=== PATIENT | male | born 1980 | race African-American/Black ===

== ENCOUNTER 2020-02-04 12:37 | Inpatient (IN) | payer OTHER ==
[~2020-02-04] VITALS: Ht 157.5 cm; Wt 235.9 kg
--- NOTE | ~2020-02-04 | EMS ---
[place] [address] EMS Patient Care Report Name: YOLIE WHALEN Room #: 357-P ADM IN M.R.#: [id number] Admission: 02/04/20 Attend Phys: Pérez Jhaveri MD Discharge: Date of : 76 Report #: [id number] THIS REPORT FOR: //name// Report Transmitted: 02/05/2020 03:35 EMS Care Summary [place], [place]/[facility] Incident [id number] @ 02/04/2020 12:00 Incident [address] [place] [address] Patient YOLIE WHALEN Male, 39 Years 1980 Patient Address [address] [place] [address] Patient History Chronic Obstructive Pulmonary Disease (COPD),Diabetes,Hypertension (HTN), Patient Allergies Furosemide, Patient Medications Bumex, Albuterol, Allantoin, Chief Complaint SOA Disposition Transported No Lights/[place] Dispatch Reason Breathing Problem Transported To [facility] Narrative PT STATES THAT PT FEELS SOA. PT DENIES CHEST PAIN, FEVER, OR NAUSEA. PT STATES THAT PT HAS BEEN FEELING LIKE THIS FOR A COUPLE DAYS AND RECENTLY WENT TO THE ER. PT STATES THAT PT FEELS SOA UPON EXHERTION. PT STATES THAT PT HAS BEEN COUGHING UP GREEN PHLEM. PT STATES THAT PT FEELS REALY SOA [place] [address] EMS Patient Care Report Name: YOLIE WHALEN Room #: 357-P ADM IN M.R.#: [id number] Admission: 02/04/20 Attend Phys: Pérez Jhaveri MD Discharge: Date of : 76 Report #: [id number] PT HAS NO OTHER CMPLAINTS. PT WAS FOUND SITTING UPRIGHT ON THE EDGE OF PT'S BED. PT SPOKE IN FULL AND COMPLETE SENTENCES. PT IS ABLE TO STAND AND PIVOT WITH ASSITANCE IN ORDER TO GET TO EMS COT. PT HAS NO OTHER OBVIOUS ABNORMALITIES. Initial Vitals @12:17P: 89,R: 24,Pain: 0/10,GCS: 15,CO: 4,SpO2: 96, @12:08P: 97,R: 24,BP: 111/80,GCS: 15,CO: 4,SpO2: 93,Revised Trauma: 12, Assessments @12:08MENTAL:Person Oriented,Time Oriented,Place Oriented,Event Oriented,SKIN:HEENT:Eyes: Left Pupil: 4-mm,Eyes: Right Pupil: 4-mm,Head/Face: No Abnormalities,Neck/Airway: No Abnormalities,LUNG SOUNDS:General: No Abnormalities,ABDOMEN:General: No Abnormalities,PELVIS//GI:EXTREMITIES:Capillary Refill: Right Upper: < 2 Sec,Left Arm: No Abnormalities,Right Arm: No Abnormalities,Left Leg: No Abnormalities,Right Leg: No Abnormalities,PULSE:Radial: 2+ Normal,NEURO: Impression Acute Respiratory Distress (Dyspnea) Procedures @12:08ALS AssessmentResponse: UnchangedSucceeded@12:17Oxygen FlowRate: 4 Device: Nasal Cannula (NC) Response: UnchangedSucceeded Timeline 11:59,Call Received 11:59,Dispatch Notified 12:00,Dispatched 12:01,En Route 12:05,On Scene 12:07,At Patient 12:08,ALS Assessment,Response: UnchangedSucceeded, 12:08,BP: 111/80 M,PULSE: 97,RR: 24 R,SPO2: 93 Ox,ETCO2: ,BG: ,PAIN: ,GCS: 15, 12:17,Oxygen FlowRate: 4 Device: Nasal Cannula (NC) Response: UnchangedSucceeded, 12:17,BP: / M,PULSE: 89,RR: 24 R,SPO2: 96 Ox,ETCO2: ,BG: ,PAIN: 0,GCS: 15, 12:20,Depart Scene 12:47,At Destination 12:51,Call Closed Disclaimer v1.1 Copyright 2020 [employer] This EMS Care Summary contains data elements from the applicable legal record (which may be displayed differently). It is designed to provide pertinent [address] [address] EMS Patient Care Report Name: YOLIE WHALEN Room #: 357-P ADM IN M.R.#: [id number] Admission: 02/04/20 Attend Phys: Pérez Jhaveri MD Discharge: Date of : 76 Report #: [id number] information for the following purposes: continuity of care, clinical quality, and state data reporting. The complete legal record is available to ED staff and administrators of the receiving hospital in [facility]'s Patient Tracker. All data is provided "as is."
[2020-02-04 12:38] VITALS: BP 112/44
[2020-02-04 13:08] LABS: ABSOLUTE NEUTROPHILS 4.1 thou/uL (1.4-8.2); EOSINOPHILS 3.3 % (0.0-3.0); HEMATOCRIT 40.4 % (42.0-52.0); HEMOGLOBIN 12.7 gm/dL (14.0-18.0); LYMPHOCYTES 24.1 % (24.0-44.0); MCH 29.3 pg (26.0-34.0); MCHC 31.5 g/dL (28.0-37.0); MONOCYTES 10.8 % (1.0-8.0); PLATELET COUNT 216 thou/uL (150-400); POLYS 60.8 % (36.0-66.0); RBC 4.35 mil/uL (4.50-6.00); RDW 13.3 % (10.5-14.5); WBC 6.8 thou/uL (4.0-11.0)
[2020-02-04 13:22] LABS: ANION GAP 0 mmol/L (7-16); BUN 11 mg/dL (7-18); CALCIUM 8.9 mg/dL (8.5-10.1); CHLORIDE 97 mmol/L (98-107); CO2 42 mmol/L (21-32); CREATININE 0.8 mg/dL (0.7-1.3); GLUCOSE 109 mg/dL (74-106); POTASSIUM 3.6 mmol/L (3.5-5.1); SODIUM 139 mmol/L (136-145)
[2020-02-04 13:27] LABS: BE(vivo) 10.7 mmol/L (-2 to +3); PO2 96.9 mmHg (80.0-100.0); sO2 96.5 % (92.0-98.0)
[2020-02-04 13:28] LABS: PCO2 79.7 mmHg (35.0-45.0); pH 7.318 (7.360-7.450)
[2020-02-04 13:28] LABS: APTT 27.6 Seconds (24.5-32.8); INR 1.1
[2020-02-04 13:31] LABS: MAGNESIUM 1.9 mg/dL (1.8-2.4); SGOT 25 U/L (15-37); SGPT 14 U/L (30-65); TOTAL BILIRUBIN 0.6 mg/dL (0.2-1.0); TOTAL PROTEIN 8.5 g/dL (6.4-8.2); TROPONIN-I <0.06 ng/mL (<0.06)
[2020-02-04 13:43] LABS: D-DIMER 1.01 ug/mLFEU (0.19-0.50)
[2020-02-04] MEDS ORDERED: ATENOLOL 25 MG25 M1 PO (14:51)
[2020-02-04] MEDS ORDERED: BUMEX2 MG PO (14:51)
[2020-02-04] MEDS ORDERED: PROAIR HFA8.5 GM INH (14:52)
--- NOTE | 2020-02-04 14:53 | NUR ---
UPON ENTERING RM PT O2 SAT 70%. RT JUST COMPLETED BREATHING TX AND O2 STILL CONNECTED TO BREATHING TX AND NOT NASAL CANNULA ON PT. O2 ON AT 5L AND O2 NOW 97%. PT IN NAD.
--- NOTE | 2020-02-04 16:49 | EKG ---
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
[2020-02-04 18:01] VITALS: BP 110/82
[2020-02-04 18:13] VITALS: BP 110/82
[2020-02-04 19:00] VITALS: BP 123/87
[2020-02-04 20:20] VITALS: BP 152/73
[2020-02-05 03:39] VITALS: BP 132/78
[2020-02-05 06:02] LABS: ABSOLUTE NEUTROPHILS 8.1 thou/uL (1.4-8.2); BASOPHILS 0.3 % (0.0-2.0); LYMPHOCYTES 7.2 % (24.0-44.0); MCH 29.2 pg (26.0-34.0); MCV 94.2 fL (80.0-100.0); MONOCYTES 3.1 % (1.0-8.0); PLATELET COUNT 211 thou/uL (150-400); POLYS 89.4 % (36.0-66.0); RBC 4.45 mil/uL (4.50-6.00); RDW 13.6 % (10.5-14.5); WBC 9.1 thou/uL (4.0-11.0)
[2020-02-05 06:28] LABS: ANION GAP < 0 mmol/L (7-16); BUN 10 mg/dL (7-18); CALCIUM 8.9 mg/dL (8.5-10.1); CHLORIDE 97 mmol/L (98-107); CO2 43 mmol/L (21-32); CREATININE 0.7 mg/dL (0.7-1.3); GLUCOSE 154 mg/dL (74-106); MAGNESIUM 2.3 mg/dL (1.8-2.4); SODIUM 138 mmol/L (136-145)
[2020-02-05 06:46] LABS: POTASSIUM 4.6 mmol/L (3.5-5.1)
--- NOTE | 2020-02-05 07:02 | NUR ---
PT ARRIVED FROM ER AND PLACED IN ROOM 357 AT APPROXIMATELY 1850. ADMISSION ASSESSMENTS COMPLETED. PT DENIES ANY PAIN. HE REPORTS THAT HE NORMALLY WEARS O2 AT 3L PER NC THROUGHOUT THE DAY BUT TURNS IT UP TO 4-5L AT BED TIME. STATES HE BELIEVES HE HAS SLEEP APNEA BUT HAS NEVER BEEN THROUGH ANY TESTING OR BEEN GIVEN A CPAP MACHINE. O2 WAS TURNED UP PER REQUEST WHEN PT WENT TO SLEEP. AWAIT COVID-19 RESULTS.
[2020-02-05 08:38] VITALS: BP 142/76
[2020-02-05 11:10] VITALS: BP 127/73
--- NOTE | 2020-02-05 11:43 | NUR ---
ASSUMED CARE APPROX 0700. PT ALERT AND ORIENTED X4. ON 5L AT START OF SHIFT. PER DR. NIELSEN: WEAN PT OFF MAINTAIN 02 SAT >90%. PT IS NOW ON 3LNC WHICH IS HIS BASELINE. SATS ARE 96-97%. SPOKE TO DR. PEREZ REGARDING EVAL FOR CPAP FOR SUSPECTED JUAN. WOULD LIKE PT STARTED ON BIPAP. DR. NIELSEN NOTIFIED. COVID RESULTS NEGATIVE. ORDERS FOR RESWAB GIVEN. WILL SEND TO LAB.
[2020-02-05 15:21] VITALS: BP 136/68
[2020-02-05 20:23] VITALS: BP 141/68
--- NOTE | 2020-02-05 23:01 | NUR ---
PT IS ALERT AND ORIENTED X4 VSS AFEBRILE. BIPAP CAN NOT BE USED UNTIL COVID IS RULED OUT. CONTINUE ON O2 PER NC AND BREATHING TREATMENTS. BREATH SOUNDS ARE DIMINISHED WITH WHEEZES. UNLABORED ON O2 3.5 LNC PRESENTLY. NO S/S DISTRESS. NO C/O PAIN. WILL CONTINUE TO MONITOR PT FOR CHANGES.
[2020-02-06] VITALS: BP 123/68
[2020-02-06 03:47] VITALS: BP 142/62
--- NOTE | 2020-02-06 04:58 | NUR ---
PT PROGRESSING SLOWLY TOWARDS D/C GOALS. VSS AFEBRIL SAT 97% WITH O2 6LNC. PT UNABLE TO WEAR BIPAP TONIGHT DUE TO COVID STILL PENDING. LUNGS STILL HAVE WHEEZES. RT TX GIVEN. PT IRRITABLE THIS AM. HE WAS UPSET SHOP SERVICE TECHNICIAN TOLD HIM HE WAS NO LONGER IN ISOLAION. SHOP SERVICE TECHNICIAN STATED CHARGE NS TOLD HER THAT HE WAS NO LONGER IN ISOLATION. EXPLAINED TO PT COVID TEST WAS STILL PENDING. CHARGE NS WENT BACK TO TALK WITH PT AND CLARIFY SITUATION.
--- NOTE | 2020-02-06 05:02 | HC ---
[facility] [place] [address] CONSULTATION Name: YOLIE WHALEN Room #: 357-P [facility] IN M.R.#: [id number] Admission: 02/04/20 Attend Phys: Pérez Jhaveri MD Discharge: Date of : 76 Report #: [id number] THIS REPORT FOR: cc: [facility] - Family physician unknown JAYRO - Family physician unknown Kishor Sanchez MD ~ CC: Pérez Jhaveri [facility] unknown DATE OF SERVICE: 02/05/2020 INFECTIOUS DISEASE CONSULTATION ATTENDING PHYSICIAN: Dr. Jhaveri. REASON FOR EVALUATION: Febrile illness with pneumonitis. Progressive dyspnea with hypoxemia. HISTORY OF PRESENT ILLNESS: Chart reviewed, patient examined. This is a 39-year-old gentleman with chronic obstructive pulmonary disease. He apparently has severe sleep apnea as well. He is on supplemental oxygen on a continuous basis at 2 liters per nasal cannula. He has been ill for 72 hours prior to his admission, developed with progressive dyspnea. He has a cough productive of clear sputum with some fevers. He has noted increasing oxygen requirements as well. Evaluation showed a chest x-ray with bilateral infiltrates. Initial COVID was negative, second test is pending. He was started empirically on ceftriaxone and azithromycin. He is lucid at this point, although he is maintained on 6 liters supplemental oxygen. He has diminished appetite. ALLERGIES: LISTED TO FUROSEMIDE. CURRENT MEDICATIONS: Include methylprednisolone, atenolol, enoxaparin, famotidine, ipratropium and albuterol inhaler, fentanyl, acetaminophen, and did receive azithromycin and ceftriaxone as well. PAST MEDICAL HISTORY: Includes, as described above, morbid obesity, history of obstructive sleep apnea, COPD, hypertension, has a history of cardiomyopathy and congestive heart failure. SOCIAL HISTORY: Nonsmoker, no ethanol. Distant history of illicit drug use, specifically marijuana. FAMILY HISTORY: Noncontributory. REVIEW OF SYSTEMS: Otherwise, unremarkable 10-point review of systems. [facility] [address] [place] [address] CONSULTATION Name: YOLIE WHALEN Room #: 357-P [facility] IN ..#: [id number] Admission: 02/04/20 Attend Phys: Pérez Jhaveri MD Discharge: Date of : 76 Report #: [id number] PHYSICAL EXAMINATION: GENERAL: As described above, morbidly obese. He is pleasant and cooperative. He is in moderate distress. He is generally lucid. VITAL SIGNS: Temperature 97.9, pulse 63, respirations 18, blood pressure 142/76. SKIN: Warm, dry, no rashes. HEENT: Normocephalic. Extraocular muscles are intact. He has got nasal cannula per 6 liters. NECK: Supple, also very thick. LUNGS: Diminished breath sounds overall, scattered coarse breath sounds, some wheezes. HEART: Regular, distant. I do not appreciate a murmur. ABDOMEN: Distended, nontender. RECTAL: Deferred. LABORATORY DATA: Initial chest x-ray showed bilateral mid and lower lobe interstitial opacities, question of some pulmonary edema versus pneumonitis. CBC: White count 6.8, H and H 12.7 and 40.4, platelets of 216. Did have a 0.3% eosinophils. ABGs: pH 7.318, pCO2 of 79.7, pO2 of 96.9; that was on 5-1/2 liters. BNP was 102. Electrolytes: Sodium 139, potassium 3.6, chloride 97, bicarbonate is 4.2, anion gap of 0. BUN and creatinine 11 and 0.8, glucose of 109. LFTs unremarkable. Total protein of 85, albumin of 3.0. PT of 11.0, INR of 1.1. Lactic acid 1.2. COVID test: Initial negative. ASSESSMENT AND PLAN: Pneumonitis. The patient has an underlying significant lung disease, on supplemental oxygen on a continuous basis. Agree with empiric antimicrobial therapy. We will extend those pending results of studies including the followup COVID test. In the event of that being positive, we would initiate remdesivir as well as convalescent plasma. He certainly remains quite tenuous. Monitor expectantly. <ELECTRONICALLY SIGNED> By: Kishor Sanchez MD 02/06/20 0502 0933 1223 Kishor Sanchez MD /nt
[2020-02-06 07:00] VITALS: BP 144/69
--- NOTE | 2020-02-06 15:52 | NUR ---
ASSUMED PATIENT CARE AT 0700. A/O X4. DENIES CHEST PAIN. TURNED 02 TO 3L AT 0700. TOLERATED ON 3L. 2ND COVID PCR NEHATIVE. TRANSFERED PATIENT TO [facility] AT 1540.
[2020-02-06 16:50] VITALS: BP 108/61
[2020-02-06 19:49] VITALS: BP 114/61
[2020-02-07] VITALS (7 sets, daily range): BP systolic 106–149; BP diastolic 41–80
--- NOTE | 2020-02-07 04:15 | NUR ---
CARE ASSUMED 1900, PT ALERT AND ORIENTED. VSS. NO C/O CHEST DISCOMFORT, OR NAUSEA. SR ON THE MONITOR. MINIMAL SOB WITH ACTIVITIES. PT REQUESTED TO HAVE HIS DOSE OF BUMEX LAST NIGHT. PT HAD BEEN ORDERED TORSEMIDE BUT HE IS ALLERIGIC TO IT. HOME HEALTH ASSISTANT AND PHARMACY NOTIFIED FOR ORDER CLARIFICATION. PT GIVEN BUMEX 2MG X1 LAST NIGHT. PT SCHEDULED DOSE TO BE CLARIFIED BY DR. NIELSEN. NO OTHER EVENTS. WILL CONTINUE TO MONITOR AND FOLLOW POC.
[2020-02-07 06:05] LABS: ANION GAP < 0 mmol/L (7-16); BUN 15 mg/dL (7-18); CALCIUM 8.9 mg/dL (8.5-10.1); CHLORIDE 96 mmol/L (98-107); CO2 44 mmol/L (21-32); CREATININE 0.7 mg/dL (0.7-1.3); GLUCOSE 91 mg/dL (74-106); POTASSIUM 3.9 mmol/L (3.5-5.1); SODIUM 139 mmol/L (136-145)
[2020-02-07] MEDS ORDERED: CEFDINIR300 MG PO (10:45)
[2020-02-07] MEDS ORDERED: PREDNISONE 20 M20 M1 PO (10:45)
[2020-02-07] MEDS ORDERED: AZITHROMYCIN250 MG PO (10:45)
[2020-02-07] MEDS ORDERED: BUMEX2 MG PO (10:45)
--- NOTE | 2020-02-07 12:17 | 2DMMODE ---
[facility] [place] [employer] [address] 2 D/M-MODE ECHOCARDIOGRAM Name: YOLIE WHALEN Room #: 212-P ADM IN M.R.#: [id number] Admission: 02/04/20 Attend Phys: Pérez Jhaveri MD Discharge: Date of : 78 Report #: [id number] THIS REPORT FOR: cc: FAM - Family physician unknown FAM - Family physician unknown Willard Foley MD ~ APPROVED REPORT Study performed: 02/07/2020 10:40:36 EXAM: Comprehensive 2D, Doppler, and color-flow Echocardiogram Patient Location: Bedside Room #: 212 BSA: 2.87 HR: 69 bpm BP: 106/41 mmHg Rhythm: NSR Other Information Study Quality: Technically DifficultTechnically Limited Indications COPD Hypertension/HDD Morbid obesity Echo Enhancing Agent Indication: Endocardial border delineation Agent(s) / Amount(s) Used: Optison 3 cc Aortic Valve AoV Peak Dean.: 1.29 m/s AO Peak Gr.: 6.68 mmHg LVOT Max P.32 mmHg LVOT Max V: 0.91 m/s Left Ventricle The left ventricle is normal size. There is normal left ventricular wall thickness. The left ventricular systolic function is normal. The left ventricular ejection fraction is within the normal range. LVEF is 55-60%. The left ventricular diastolic function is normal. Right Ventricle [facility] [employer] [place] [address] 2 D/M-MODE ECHOCARDIOGRAM Name: YOLIE WHALEN Room #: 212-P ADM IN M.R.#: [id number] Admission: 02/04/20 Attend Phys: Juarez Wiley Discharge: Date of : 78 Report #: [id number] The right ventricle is normal size. The right ventricular systolic function is normal. Atria The left atrium size is normal. The right atrium size is normal. Aortic Valve The aortic valve is normal in structure. No aortic regurgitation is present. There is no aortic valvular stenosis. Mitral Valve The mitral valve is normal in structure. There is no mitral valve regurgitation noted. No evidence of mitral valve stenosis. Tricuspid Valve The tricuspid valve is normal in structure. There is no tricuspid valve regurgitation noted. Pulmonic Valve Pulmonic valve is not well visualized. There is no pulmonic valvular regurgitation. Great Vessels The aortic root is normal in size. IVC is not well visualized. Pericardium There is no pericardial effusion. <Conclusion> The left ventricle is normal size. LVEF is 55-60%. Techically extremely limited with very little useful information obtained to finely delineate valvular structure/function The left atrium size is normal. There is no pericardial effusion. <ELECTRONICALLY SIGNED> By: Willard Foley MD 02/07/20 1217 1217 1217 Willard Foley MD /INF
[2020-02-07] MEDS ORDERED: ASPIRIN EC325 M1 PO (13:01)
--- NOTE | 2020-02-07 14:00 | NUR ---
MET WITH PATIENT WHO ADMITS WITH CHF/RESP DISTRESS. PATIENT RESIDES AT HOME WITH FAMILY. HE HAS HOME OXYGEN VIA MED RESOURCES HIS CONCENTRATOR ONLY GOES TO 5 LITERS. 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 IF HOME HEALTH ORDERED HE WILL NOT REC THERAPY ONLY HH RN DUE TO INSURANCE. HE HAS NO PREFERENCE FOR HH WILL ACCEPT WHOEVER ACCEPTS HIS [place] MEDICAID
--- NOTE | 2020-02-07 17:28 | NUR ---
ASSESSMENT CHAERTED. PT ALERT AND ORIENTED. SOB NOTED WITH ACTIVITY. 3L AT REST NEEDED 8L WITH ACTIVITY PER THE RT. DISCHARGE PLANS ON HOLD. PT TO BE REEVALUATED FOR OXYGEN NEED. WILL CONTINUE TO MONITOR.
[2020-02-08 03:13] VITALS: BP 121/66
--- NOTE | 2020-02-08 05:06 | NUR ---
PT ALERT AND ORIENTED./. VITALS STABLE. SR ON THE MONITOR. DENIES PAIN, NAUSEA, OR VOMITING. BIPAP HS OTHERWISE 3L NC. SOB WITH ACTIVITIES. DENIES GENERAL PAIN. WILL CONTINUE TO FOLLOW POC.
[2020-02-08 06:11] LABS: BUN 14 mg/dL (7-18); CHLORIDE 91 mmol/L (98-107); CREATININE 0.7 mg/dL (0.7-1.3); GLUCOSE 80 mg/dL (74-106); POTASSIUM 3.2 mmol/L (3.5-5.1); SODIUM 138 mmol/L (136-145)
[2020-02-08 06:18] LABS: CO2 > 45 mmol/L (21-32)
[2020-02-08 07:55] VITALS: BP 134/80
--- NOTE | 2020-02-08 09:50 | NUR ---
PT PLACED BACK ON CPAP PER PT REQUEST AFTER BREAKFAST.
[2020-02-08 11:40] VITALS: BP 124/69
[2020-02-08 16:10] VITALS: BP 114/68
--- NOTE | 2020-02-08 17:05 | NUR ---
IV TEAM REINSERT PICC LINE AND GIVE OK FOR PT TO GO HOME AFTER REPEAT XRY. PT UNDERSTANDS ALL FOLLOW UP ORDERS AND HOME HEALTH SET UP BY CM. DISCHARGE TO HOME VIA PRIVATE VEHICLE.
[2020-02-08 20:17] VITALS: BP 125/78
[2020-02-09 04:00] VITALS: BP 97/60
[2020-02-09 06:06] LABS: CALCIUM 8.7 mg/dL (8.5-10.1); CREATININE 0.8 mg/dL (0.7-1.3); POTASSIUM 3.1 mmol/L (3.5-5.1)
[2020-02-09 07:51] VITALS: BP 121/52
[2020-02-09] MEDS ORDERED: K-DUR 20 MEQ T20 MEQ PO (09:28)
[2020-02-09] MEDS ORDERED: BUMEX2 MG PO (09:28)
[2020-02-09] MEDS ORDERED: CEFDINIR300 MG PO (09:28)
[2020-02-09] MEDS ORDERED: PREDNISONE 20 M20 M1 PO (09:28)
--- NOTE | 2020-02-09 10:20 | NUR ---
POSSIBLE DC HOME TODAY. [facility] ACCEPTING OF PATIENT. SP WITH DR ACKERMAN WHO DOES NOT WANT PATIENT TO REC A TRILOGY UNTIL SLEEP STUDY. ALERTED PATIENTS HOME CONCENTRATOR ONLY TO [address] ACKERMAN AND DR DESAI AWARE. SAT/EX TODAY. DR DESAI MADE AWARE THAT PATIENT [place]ICA[place] WITH HOME HEALTH CARE ONLY REC RN NO THERAPY.
[2020-02-09 11:18] VITALS: BP 106/41
[2020-02-09 11:35] VITALS: BP 114/76
[2020-02-09 15:04] VITALS: BP 117/65
--- NOTE | 2020-02-09 16:13 | NUR ---
FAXED DC ORDERS/SUMMARY TO [facility] SPOKE WITH RICHELLE IN INTAKE SHE RECEIVED ORDERS AND WILL NOTIFY PT TIME OF VISITS. PT POSS DC TODAY OR TOMORROW WILL NOTIFY [facility].
--- NOTE | 2020-02-09 16:32 | NUR ---
PT CARE ASSUMED APPROX 0700. ASSESSMENTS CHARTED. PT DENIES PAIN. REPORTS MILD SOA WITH ACTIVITY. O2 REQUIREMENTS HAVE DECREASED. VSS. UP WTIH STEADY GAIT. PT TO DISCHARGE THIS SHIFT IF TRILOGY AND CONCENTRATOR ARRIVE FOR HIM TO USE OUTPT. REMAINS UNKNOWN AT THIS TIME. PT INITIALLY HAD A LOT OF QUESTIONS REGARDING POST HOSPITAL CARES BUT DENIES AT THIS TIME. TOLERATING POC. WILL CONTINUE WITH POC. NO DISTRESS NOTED.
--- NOTE | 2020-02-09 17:30 | NUR ---
Patient to dc home needs trilogy and new concentrator for 10 liters at home. Sp with Priscila at [facility] oxygen [facility]. Dr De La Cruz assisted with completion of paperwork. Called medicaid for prior auth. Sp with Priscila who rec faxed completion of paperwork. Their oncall RT will deliver oxygen comcentrtor and trilogy to home and set up. Verified address. No further needs.
[2020-02-09 17:33] VITALS: BP 106/41
--- NOTE | 2020-02-09 17:38 | NUR ---
patient discharged to home with plan of delivary of oxygen concntrator for 10 liters replacing his current concentrator of 5 liters and triligy.
--- NOTE | 2020-02-09 20:25 | NUR ---
0: DISCHARGE INSTRUCTIONS/EDUCATION BY DAY NURSE IN MY PRESENCE WITH PT VERBALIZING UNDERSTANDING. EDUCATED ON 3LNC AT REST AND 6LNC WITH ACTIVITY. 1944: TOOK OUT IV FROM RIGHT AC WITH CATHETER TIP STILL INTACT. PRESSURE DRESSING APPLIED AND PT EDUCATED ON THE NEED TO LEAVE PRESSURE DRESSING ON FOR WHOLE NIGHT AND THEN TAKE IT OUT TOMORROW. THIS IS BECAUSE PT HAS BEEN ON BLOOD THINNERS AND WAS BLEEDING A LOT WITH IV REMOVAL. PT EDUCATED TO PUT A PROTECTIVE WRAP OVER PRESSURE DRESSING IF HE WANTS TO TAKE A SHOWER TONIGHT AND LET DRESSING BE ON UNTIL TOMORROW. PT VERBALIZES UNDERSTANDING. 1954: WHEELED PT OUT TO FAMILY'S CAR INFRONT OF ED. PT'S OXYGEN TANK AND BELONGINGS TAKEN WITH HIM AND PLACED IN FAMILY'S CAR. PT STABLE WITH NO DISTRESS NOTED.
== END 2020-02-09 19:55 | disposition home or self-care (01) | DRG 193 ==
LOC: ER 12:37 → EROBS 15:15 → 2N 15:15 → 3W 18:50 → 2N 02-06 15:42
PROVIDERS: Emergency Medicine; Internal Medicine Pulmonary Disease; Nurse Practitioner; ADMIT Hospitalist; ATTEND Hospitalist
PROC: 5A09357 Assistance with Respiratory Ventilation, Less than 24 Consecutive Hours, Continuous Positive Airway Pressure (ICD-10-PCS; principal; 2020-02-07)
PROC: 5A09357 Assistance with Respiratory Ventilation, Less than 24 Consecutive Hours, Continuous Positive Airway Pressure (ICD-10-PCS; 2020-02-08)
PROC: 5A09357 Assistance with Respiratory Ventilation, Less than 24 Consecutive Hours, Continuous Positive Airway Pressure (ICD-10-PCS; 2020-02-09)
DX: J18.9 Pneumonia, unspecified organism (principal); J96.21 Acute and chronic respiratory failure with hypoxia; J96.22 Acute and chronic respiratory failure with hypercapnia; J44.1 Chronic obstructive pulmonary disease with (acute) exacerbation; J44.0 Chronic obstructive pulmonary disease with (acute) lower respiratory infection; I42.9 Cardiomyopathy, unspecified; I50.30 Unspecified diastolic (congestive) heart failure; E87.3 Alkalosis; Z68.45 Body mass index [BMI] 70 or greater, adult; E66.01 Morbid (severe) obesity due to excess calories; G47.33 Obstructive sleep apnea (adult) (pediatric); E87.8 Other disorders of electrolyte and fluid balance, not elsewhere classified; J45.909 Unspecified asthma, uncomplicated; R73.9 Hyperglycemia, unspecified; T38.0X5A Adverse effect of glucocorticoids and synthetic analogues, initial encounter; Z20.828 Contact with and (suspected) exposure to other viral communicable diseases; I11.0 Hypertensive heart disease with heart failure; E87.6 Hypokalemia; Z88.8 Allergy status to other drugs, medicaments and biological substances; Z87.891 Personal history of nicotine dependence; Z79.899 Other long term (current) drug therapy; Y92.89 Other specified places as the place of occurrence of the external cause
CPT/HCPCS: 10081; 10879

== ENCOUNTER 2020-09-17 08:40 | Inpatient (IN) | payer OTHER ==
[~2020-09-17] VITALS: Ht 157.5 cm; Wt 230.9 kg
--- NOTE | ~2020-09-17 | EMS ---
[place] [id number] EMS Patient Care Report Name: YOLIE WHALEN Room #: PRE M.R.#: [id number] Admission: Attend Phys: Discharge: Date of : 76 Report #: [id number] THIS REPORT FOR: //name// Report Transmitted: 09/17/2020 10:15 EMS Care Summary [place], [place]/[facility] Incident [id number] @ 09/17/2020 08:00 Incident Location [address] [place] [address] Patient YOLIE WHALEN Male, 39 Years 1980 Patient Address [address] [place] [address] Patient History Congestive Heart Failure (CHF),Chronic Obstructive Pulmonary Disease (COPD), Patient Allergies No known allergies, Patient Medications Oxygen, Chief Complaint PAIN WITH COUGH/ SMALL AMOUNT OF BLOOD FROM COUGH Disposition Transported No Lights/[place] Dispatch Reason Breathing Problem Transported To [facility] Narrative UPON ARRIVAL FAMILY TELLS US PT WILL BE COMING OUTSIDE. AFTER WAITING FRO PT FOR A WHILE WENT INSIDE TO CHECK. PT STATES HE NEEDS HIS O2 TO WALK OUT TO COT. PT ALWAYS ON 2 LPM O2. PT O2 BUMPED UP TO 4LPM TO GET TO COT. O2 BUMPED UP TO 6LPM IN AMBULANCE. PT STATES HE HAS CHEST PAIN WITH COUGH [place] [address] EMS Patient Care Report Name: YOLIE WHALEN Room #: PRE [facility].R.#: [id number] Admission: Attend Phys: Discharge: Date of : 76 Report #: [id number] BLOOD. PT HAS A SMALL AMOUNT OF RED IN TISSUE. PT ALSO A LITTLE MORE SOB THAN NORMAL. PT HAS HAD RECENT EXPOSURE TO CONFIRMED COVID PT. PT TRANSPORTED TO [facility]. Initial Vitals @08:20P: 96,R: 24,BP: 132/72,Pain: 4/10,GCS: 15,SpO2: 90,Revised Trauma: 12, @08:30P: 99,R: 24,BP: 126/83,GCS: 15,SpO2: 92,Revised Trauma: 12, Assessments @08:15MENTAL:Person Oriented,Time Oriented,Event Oriented,Place Oriented,SKIN:HEENT:Head/Face: No Abnormalities,LUNG SOUNDS:General: No Abnormalities,ABDOMEN:General: No Abnormalities,PELVIS//GI:EXTREMITIES:Left Arm: No Abnormalities,Right Arm: No Abnormalities,Left Leg: No Abnormalities,Right Leg: No Abnormalities,PULSE:Radial: 2+ Normal,NEURO:No Abnormalities, Impression Shortness of breath Procedures @08:15ALS AssessmentResponse: UnchangedSucceeded@08:20Oxygen FlowRate: 6 Device: Nasal Cannula (NC) Response: ImprovedSucceeded@PTAOxygen FlowRate: 2 Device: Nasal Cannula (NC) Response: UnchangedSucceeded Timeline NEUROSCIENCE SPECIALIST,Oxygen FlowRate: 2 Device: Nasal Cannula (NC) Response: UnchangedSucceeded, 07:59,Call Received 07:59,Dispatch Notified 08:00,Dispatched 08:01,En Route 08:04,On Scene 08:10,At Patient 08:15,ALS Assessment,Response: UnchangedSucceeded, 08:20,Depart Scene 08:20,BP: 132/72 M,PULSE: 96,RR: 24 R,SPO2: 90 Ox,ETCO2: ,BG: ,PAIN: 4,GCS: 15, 08:20,Oxygen FlowRate: 6 Device: Nasal Cannula (NC) Response: ImprovedSucceeded, 08:30,BP: 126/83 M,PULSE: 99,RR: 24 R,SPO2: 92 Ox,ETCO2: ,BG: ,PAIN: ,GCS: 15, 08:34,At Destination 08:52,Call Closed Disclaimer v1.1 Copyright 2020 [employer] This EMS Care Summary contains data elements from the applicable legal record (which may be displayed differently). It is designed to provide pertinent information for the following purposes: continuity of care, clinical quality, and state data reporting. The complete legal record is available to ED staff [address] [place] [address] [address] EMS Patient Care Report Name: YOLIE WHALEN Room #: PRE M.R.#: [id number] Admission: Attend Phys: Discharge: Date of : 76 Report #: [id number] and administrators of the receiving hospital in [facility]'s Patient Tracker. All data is provided "as is."
[~2020-09-17 08:40] MED LIST: ASPIRIN EC325 M1 PO; ATENOLOL 25 MG25 M1 PO; AZITHROMYCIN250 MG PO; BUMEX2 MG PO; CEFDINIR300 MG PO; K-DUR 20 MEQ T20 MEQ PO; PREDNISONE 20 M20 M1 PO; PROAIR HFA8.5 GM INH
[2020-09-17 08:43] VITALS: BP 117/56
[2020-09-17 10:11] LABS: ABSOLUTE NEUTROPHILS 3.2 thou/uL (1.4-8.2); BASOPHILS 0.6 % (0.0-2.0); EOSINOPHILS 0.1 % (0.0-3.0); HEMATOCRIT 34.9 % (42.0-52.0); HEMOGLOBIN 11.2 gm/dL (14.0-18.0); LYMPHOCYTES 19.8 % (24.0-44.0); MCH 28.9 pg (26.0-34.0); MCV 90.2 fL (80.0-100.0); PLATELET COUNT 158 thou/uL (150-400); POLYS 66.5 % (36.0-66.0); RBC 3.87 mil/uL (4.50-6.00); RDW 13.1 % (10.5-14.5); WBC 4.8 thou/uL (4.0-11.0)
[2020-09-17 10:20] LABS: ANION GAP 3 mmol/L (7-16); BUN 13 mg/dL (7-18); CALCIUM 8.3 mg/dL (8.5-10.1); CHLORIDE 94 mmol/L (98-107); CO2 41 mmol/L (21-32); CREATININE 0.7 mg/dL (0.7-1.3); GLUCOSE 114 mg/dL (74-106); POTASSIUM 3.2 mmol/L (3.5-5.1); SODIUM 138 mmol/L (136-145)
[2020-09-17 10:32] LABS: ALBUMIN 2.6 g/dL (3.4-5.0); DIRECT BILIRUBIN 0.2 mg/dL (<0.1-0.2); SGOT 50 U/L (15-37); SGPT 17 U/L (30-65); TOTAL BILIRUBIN 0.8 mg/dL (0.2-1.0); TOTAL PROTEIN 8.2 g/dL (6.4-8.2); TROPONIN-I <0.06 ng/mL (<0.06)
--- NOTE | 2020-09-17 11:07 | EKG ---
[place] [address] [address] [facility] 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 : 1980 Requested By: Destiny Hernandez Order Number: [id number] MD: Luis F Mathias Measurements Intervals [place] Rate: 91 P: 26 NV: 144 QRS: 36 QRSD: 104 T: 13 QT: 382 QTc: 471 Interpretive Statements Sinus rhythm Low voltage, precordial leads Baseline wander in lead(s) III,V2 Compared to ECG 02/04/2020 14:02:18 Low QRS voltage now present T-wave abnormality no longer present Electronically Signed On 09-17-2020 11:07:05 CDT by Luis F Mathias [email or web address] <ELECTRONICALLY SIGNED> By: Luis F Mathias MD 09/17/20 1107 D: [id number] Luis F Mathias MD /ANUP
[2020-09-17 14:22] VITALS: BP 129/73
[2020-09-17 14:32] LABS: BE(vivo) 14.3 mmol/L (-2 to +3); HCO3 42.5 mmol/L (22.0-26.0); PCO2 VENOUS 75.2 mmHg (41.0-51.0); PO2 VENOUS 20.3 mmHg (35.0-45.0)
[2020-09-17 20:37] LABS: URINE BILIRUBIN NEGATIVE (Negative); URINE BLOOD NEGATIVE (Negative); URINE CLARITY CLEAR; URINE COLOR YELLOW; URINE GLUCOSE-RANDOM* TRACE (Negative); URINE KETONES NEGATIVE (Negative); URINE LEUKOCYTES-REFLEX NEGATIVE (Negative); URINE NITRITE-REFLEX NEGATIVE (Negative); URINE PROTEIN (DIPSTICK) 1+ (Negative); URINE SPECIFIC GRAVITY 1.015 (1.005-1.035); URINE UROBILINOGEN >= 8.0 E.U./dl (0.2-1.0)
[2020-09-17 20:47] LABS: BACTERIA-REFLEX None Seen /HPF (None Seen); CASTS None Seen /LPF (None Seen); SQUAMOUS 0-3 Few /LPF (0-3); URINE RBC 0-2 Rare /HPF (0-2); URINE WBC-REFLEX 0-5 Rare /HPF (0-5)
[2020-09-17 20:48] LABS: CRYSTALS None Seen /LPF (None Seen)
[2020-09-18 05:01] LABS: ABSOLUTE NEUTROPHILS 1.8 thou/uL (1.4-8.2); BASOPHILS 0.7 % (0.0-2.0); HEMOGLOBIN 11.3 gm/dL (14.0-18.0); LYMPHOCYTES 22.6 % (24.0-44.0); MCH 29.1 pg (26.0-34.0); MCHC 32.1 g/dL (28.0-37.0); MCV 90.6 fL (80.0-100.0); MONOCYTES 17.5 % (1.0-8.0); PLATELET COUNT 171 thou/uL (150-400); POLYS 59.2 % (36.0-66.0); RBC 3.87 mil/uL (4.50-6.00); RDW 12.9 % (10.5-14.5); WBC 3.1 thou/uL (4.0-11.0)
[2020-09-18 05:12] LABS: ALBUMIN 2.6 g/dL (3.4-5.0); CALCIUM 8.8 mg/dL (8.5-10.1); CREATININE 0.8 mg/dL (0.7-1.3); MAGNESIUM 1.9 mg/dL (1.8-2.4); POTASSIUM 3.8 mmol/L (3.5-5.1); TOTAL BILIRUBIN 0.7 mg/dL (0.2-1.0); TOTAL PROTEIN 8.7 g/dL (6.4-8.2)
[2020-09-18 08:11] VITALS: BP 123/63
[2020-09-18 13:56] VITALS: BP 117/66
[2020-09-18 15:34] VITALS: BP 117/61
[2020-09-18 19:28] VITALS: BP 125/73
[2020-09-19 00:10] VITALS: BP 117/66
[2020-09-19 03:44] VITALS: BP 126/71
[2020-09-19 04:41] LABS: D-DIMER 1.09 ug/mLFEU (0.19-0.50); INR 1.01
[2020-09-19 05:03] LABS: ABSOLUTE NEUTROPHILS 2.2 thou/uL (1.4-8.2); BASOPHILS 0.2 % (0.0-2.0); HEMATOCRIT 33.8 % (42.0-52.0); HEMOGLOBIN 10.8 gm/dL (14.0-18.0); LYMPHOCYTES 18.2 % (24.0-44.0); MCHC 31.9 g/dL (28.0-37.0); MONOCYTES 14.3 % (1.0-8.0); PLATELET COUNT 204 thou/uL (150-400); POLYS 67.3 % (36.0-66.0); RBC 3.71 mil/uL (4.50-6.00); RDW 13.3 % (10.5-14.5); WBC 3.3 thou/uL (4.0-11.0)
[2020-09-19 05:10] LABS: ALBUMIN 2.3 g/dL (3.4-5.0); CALCIUM 8.6 mg/dL (8.5-10.1); CREATININE 0.7 mg/dL (0.7-1.3); POTASSIUM 4.2 mmol/L (3.5-5.1); TOTAL BILIRUBIN 0.6 mg/dL (0.2-1.0); TOTAL PROTEIN 8.2 g/dL (6.4-8.2)
[2020-09-19 07:22] VITALS: BP 121/74
[2020-09-19 11:33] VITALS: BP 122/89
[2020-09-19 13:08] LABS: HIV ANTIBODY Non Reactive (Non Reactive)
[2020-09-19 15:41] VITALS: BP 120/69
[2020-09-19 19:28] VITALS: BP 124/59
[2020-09-20 05:09] VITALS: BP 117/68
[2020-09-20 05:59] LABS: HEMOGLOBIN 11.3 gm/dL (14.0-18.0); MCH 28.8 pg (26.0-34.0); MCHC 31.5 g/dL (28.0-37.0); MCV 91.4 fL (80.0-100.0); RBC 3.94 mil/uL (4.50-6.00); RDW 13.2 % (10.5-14.5); WBC 2.4 thou/uL (4.0-11.0)
[2020-09-20 06:09] LABS: ALBUMIN 2.4 g/dL (3.4-5.0); CALCIUM 8.4 mg/dL (8.5-10.1); CREATININE 0.7 mg/dL (0.7-1.3); POTASSIUM 4.3 mmol/L (3.5-5.1); TOTAL BILIRUBIN 0.5 mg/dL (0.2-1.0); TOTAL PROTEIN 7.5 g/dL (6.4-8.2)
[2020-09-20 09:27] VITALS: BP 117/66
[2020-09-20 11:52] VITALS: BP 117/62
[2020-09-20 19:53] VITALS: BP 125/66
[2020-09-21 03:59] VITALS: BP 118/63
[2020-09-21 05:10] LABS: HEMATOCRIT 38.1 % (42.0-52.0); HEMOGLOBIN 11.9 gm/dL (14.0-18.0); MCH 28.6 pg (26.0-34.0); MCHC 31.3 g/dL (28.0-37.0); MCV 91.5 fL (80.0-100.0); RBC 4.16 mil/uL (4.50-6.00); RDW 13.2 % (10.5-14.5); WBC 2.8 thou/uL (4.0-11.0)
[2020-09-21 06:14] LABS: ALBUMIN 2.6 g/dL (3.4-5.0); CALCIUM 8.3 mg/dL (8.5-10.1); CREATININE 0.7 mg/dL (0.7-1.3); POTASSIUM 4.4 mmol/L (3.5-5.1); TOTAL BILIRUBIN 0.6 mg/dL (0.2-1.0); TOTAL PROTEIN 7.7 g/dL (6.4-8.2)
[2020-09-21 07:42] VITALS: BP 127/66
[2020-09-21 11:30] VITALS: BP 90/45
--- NOTE | 2020-09-21 14:23 | 2DMMODE ---
[facility] [place] [address] 2 D/M-MODE ECHOCARDIOGRAM Name: YOLIE WHALEN Room #: 356-P ADM IN M.R.#: [id number] Admission: 09/17/20 Attend Phys: Elaine Ohara MD Discharge: Date of : 76 Report #: [id number] THIS REPORT FOR: cc: FAM - Family physician unknown FAM - Family physician unknown Syed Hernandez MD [facility] ~ APPROVED REPORT Study performed: 09/21/2020 11:52:07 EXAM: Comprehensive 2D, Doppler, and color-flow Echocardiogram Patient Location: Bedside Room #: [facility] Status: routine BSA: 2.84 HR: 67 bpm BP: 127/66 mmHg Rhythm: NSR Other Information Study Quality: Technically Difficult Technically limited study due to body habitus, inability to position patient. Indications Dyspnea Covid 19, Severe Morbid Obesity Echo Enhancing Agent Indication: Endocardial border delineation Agent(s) / Amount(s) Used: Optison 6 cc Left Ventricle The left ventricle is normal size. There is normal LV segmental wall motion. There is normal left ventricular wall thickness. The left ventricular systolic function is normal. The left ventricular ejection fraction is within the normal range. LVEF is 55-60%. This study is not technically sufficient to allow evaluation of the LV diastolic function. Right Ventricle Right ventricle is grossly normal in size. Right ventricular systolic function is grossly normal. [facility] [address] [place] [address] 2 D/M-MODE ECHOCARDIOGRAM Name: YOLIE WHALEN Room #: 356-P ADM IN M.R.#: [id number] Admission: 09/17/20 Attend Phys: Elaine Ohara, Discharge: Date of : 76 Report #: [id number] [place] Left atrium is not well visualized. Right atrium is not well visualized. Aortic Valve The aortic valve is not well visualized. Mitral Valve Mitral valve is not well visualized. Tricuspid Valve The tricuspid valve is not well visualized. There is no tricuspid valve regurgitation noted. Pulmonic Valve Pulmonic valve is not well visualized. Great Vessels Aortic root is not well visualized. Pericardium The pericardium appears normal. <Conclusion> Technically very difficult study Contrast was used for better endocardial visualization Normal left ventricular size. Wall thickness appears to be normal Ejection fraction 5560% % Normal right ventricular size and function Atrium was not well visualized Unable to comment on the aortic/mitral valve No obvious pericardial effusion <ELECTRONICALLY SIGNED> By: Syed Hernandez MD, FACC 09/21/201421 21 21 Syed Hernandez MD, FACC /INF
[2020-09-21 15:31] VITALS: BP 95/49
[2020-09-22 04:28] VITALS: BP 108/55
[2020-09-22 05:08] LABS: ABSOLUTE NEUTROPHILS 1.8 thou/uL (1.4-8.2); BASOPHILS 0.2 % (0.0-2.0); EOSINOPHILS 0.3 % (0.0-3.0); HEMATOCRIT 36.8 % (42.0-52.0); HEMOGLOBIN 11.7 gm/dL (14.0-18.0); LYMPHOCYTES 30.6 % (24.0-44.0); MCHC 31.9 g/dL (28.0-37.0); MONOCYTES 23.2 % (1.0-8.0); PLATELET COUNT 299 thou/uL (150-400); POLYS 45.7 % (36.0-66.0); RBC 4.04 mil/uL (4.50-6.00); RDW 13.5 % (10.5-14.5)
[2020-09-22 05:42] LABS: ALBUMIN 2.7 g/dL (3.4-5.0); CALCIUM 8.7 mg/dL (8.5-10.1); CREATININE 0.6 mg/dL (0.7-1.3); POTASSIUM 4.4 mmol/L (3.5-5.1); TOTAL BILIRUBIN 0.8 mg/dL (0.2-1.0); TOTAL PROTEIN 7.7 g/dL (6.4-8.2)
[2020-09-22 07:51] VITALS: BP 116/56
[2020-09-22 11:26] LABS: T-SPOT.TB Negative
[2020-09-22 11:29] VITALS: BP 116/75
[2020-09-22 15:28] VITALS: BP 107/81
[2020-09-23 04:17] VITALS: BP 130/78
[2020-09-23 04:34] LABS: ABSOLUTE NEUTROPHILS 3.7 thou/uL (1.4-8.2); BASOPHILS 0.1 % (0.0-2.0); EOSINOPHILS 0.4 % (0.0-3.0); HEMOGLOBIN 12.2 gm/dL (14.0-18.0); MCH 28.7 pg (26.0-34.0); MCV 89.8 fL (80.0-100.0); MONOCYTES 18.5 % (1.0-8.0); PLATELET COUNT 333 thou/uL (150-400); RBC 4.23 mil/uL (4.50-6.00); RDW 13.1 % (10.5-14.5); WBC 6.3 thou/uL (4.0-11.0)
[2020-09-23 04:46] LABS: ALBUMIN 2.7 g/dL (3.4-5.0); CREATININE 0.7 mg/dL (0.7-1.3); POTASSIUM 3.8 mmol/L (3.5-5.1); TOTAL BILIRUBIN 0.7 mg/dL (0.2-1.0); TOTAL PROTEIN 8.4 g/dL (6.4-8.2)
[2020-09-23 07:07] VITALS: BP 129/82
[2020-09-23 11:31] VITALS: BP 102/55
[2020-09-23 19:29] VITALS: BP 117/60
[2020-09-24 04:31] VITALS: BP 131/70
[2020-09-24 05:07] LABS: BASOPHILS 0.4 % (0.0-2.0); EOSINOPHILS 0.3 % (0.0-3.0); HEMATOCRIT 38.7 % (42.0-52.0); HEMOGLOBIN 12.5 gm/dL (14.0-18.0); LYMPHOCYTES 17.6 % (24.0-44.0); MCHC 32.2 g/dL (28.0-37.0); MONOCYTES 16.3 % (1.0-8.0); PLATELET COUNT 373 thou/uL (150-400); POLYS 65.4 % (36.0-66.0); RDW 13.2 % (10.5-14.5); WBC 6.1 thou/uL (4.0-11.0)
[2020-09-24 05:30] LABS: ALBUMIN 2.8 g/dL (3.4-5.0); CALCIUM 9.3 mg/dL (8.5-10.1); CREATININE 0.7 mg/dL (0.7-1.3); POTASSIUM 3.8 mmol/L (3.5-5.1); TOTAL BILIRUBIN 0.8 mg/dL (0.2-1.0); TOTAL PROTEIN 8.4 g/dL (6.4-8.2)
[2020-09-24 08:09] VITALS: BP 129/73
[2020-09-24 12:12] VITALS: BP 125/65
[2020-09-24 16:00] VITALS: BP 102/59
[2020-09-24 19:59] VITALS: BP 131/66
[2020-09-25 04:55] VITALS: BP 119/56
[2020-09-25 05:59] LABS: ABSOLUTE NEUTROPHILS 5.5 thou/uL (1.4-8.2); BASOPHILS 0.2 % (0.0-2.0); EOSINOPHILS 0.3 % (0.0-3.0); HEMOGLOBIN 13.3 gm/dL (14.0-18.0); LYMPHOCYTES 18.3 % (24.0-44.0); MCH 29.3 pg (26.0-34.0); MCHC 32.5 g/dL (28.0-37.0); MONOCYTES 17.6 % (1.0-8.0); PLATELET COUNT 385 thou/uL (150-400); POLYS 63.6 % (36.0-66.0); RBC 4.55 mil/uL (4.50-6.00); WBC 8.7 thou/uL (4.0-11.0)
[2020-09-25 06:07] LABS: CALCIUM 9.2 mg/dL (8.5-10.1); CREATININE 0.8 mg/dL (0.7-1.3); POTASSIUM 3.6 mmol/L (3.5-5.1); TOTAL PROTEIN 8.4 g/dL (6.4-8.2)
[2020-09-25 06:09] LABS: D-DIMER 0.49 ug/mLFEU (0.19-0.50); INR 1.14; PROTIME 12.4 Seconds (9.3-11.4)
[2020-09-25 07:08] VITALS: BP 125/77
[2020-09-25 11:15] VITALS: BP 98/56
[2020-09-25 15:04] VITALS: BP 109/73
[2020-09-25 20:10] VITALS: BP 122/72
[2020-09-26 05:00] VITALS: BP 115/60
[2020-09-26 07:16] VITALS: BP 124/75
[2020-09-26 10:51] LABS: CALCIUM 9.5 mg/dL (8.5-10.1); CREATININE 0.8 mg/dL (0.7-1.3); MAGNESIUM 2.3 mg/dL (1.8-2.4); POTASSIUM 3.7 mmol/L (3.5-5.1)
[2020-09-26 11:31] VITALS: BP 114/69
[2020-09-26 21:29] VITALS: BP 91/53
[2020-09-27 04:23] VITALS: BP 88/56
[2020-09-27 06:41] LABS: ALBUMIN 3.2 g/dL (3.4-5.0); CALCIUM 9.1 mg/dL (8.5-10.1); CREATININE 0.8 mg/dL (0.7-1.3); DIRECT BILIRUBIN 0.2 mg/dL (<0.1-0.2); PHOSPHORUS 3.9 mg/dL (2.5-4.9); POTASSIUM 3.5 mmol/L (3.5-5.1); TOTAL BILIRUBIN 0.9 mg/dL (0.2-1.0); TOTAL PROTEIN 8.3 g/dL (6.4-8.2)
[2020-09-27 08:46] VITALS: BP 110/67
[2020-09-27 20:37] VITALS: BP 115/74
[2020-09-28 04:40] VITALS: BP 113/66
[2020-09-28 08:14] VITALS: BP 108/65
[2020-09-28 12:03] VITALS: BP 99/65
[2020-09-28 20:41] VITALS: BP 100/63
[2020-09-29 03:25] VITALS: BP 101/58
[2020-09-29 04:10] LABS: HEMATOCRIT 38.6 % (42.0-52.0); HEMOGLOBIN 12.5 gm/dL (14.0-18.0); MCH 29.2 pg (26.0-34.0); MCHC 32.4 g/dL (28.0-37.0); MCV 90.4 fL (80.0-100.0); RBC 4.28 mil/uL (4.50-6.00); RDW 13.8 % (10.5-14.5)
[2020-09-29 04:41] LABS: CALCIUM 9.1 mg/dL (8.5-10.1); CREATININE 0.8 mg/dL (0.7-1.3)
[2020-09-29 04:48] LABS: POTASSIUM 2.9 mmol/L (3.5-5.1)
[2020-09-29 08:05] VITALS: BP 113/63
[2020-09-29] MEDS ORDERED: IPRAT-ALBUT 0.5-3 ML INH (12:56)
[2020-09-29] MEDS ORDERED: VITAMIN B-1100 M2 PO (12:57)
[2020-09-29] MEDS ORDERED: ACEROLA C500 MG PO (12:58)
[2020-09-29] MEDS ORDERED: PREDNISONE 10 M10 M1 PO (12:58)
[2020-09-29] MEDS ORDERED: VITAMIN D325 MC1 PO (12:58)
[2020-09-29 14:16] VITALS: BP 113/63
== END 2020-09-29 15:59 | disposition home health service (06) | DRG 177 ==
LOC: ER 08:40 → EROBS 12:55 → 3W 09-18 13:18
PROVIDERS: Emergency Medicine; Hospitalist; Internal Medicine; Internal Medicine Pulmonary Disease; Specialist; ADMIT Internal Medicine; ATTEND Internal Medicine
PROC: 5A09357 Assistance with Respiratory Ventilation, Less than 24 Consecutive Hours, Continuous Positive Airway Pressure (ICD-10-PCS; principal; 2020-09-17)
PROC: 5A0935A Assistance with Respiratory Ventilation, Less than 24 Consecutive Hours, High Flow/Velocity Cannula (ICD-10-PCS; principal; 2020-09-17)
PROC: 5A0935A Assistance with Respiratory Ventilation, Less than 24 Consecutive Hours, High Flow/Velocity Cannula (ICD-10-PCS; 2020-09-18)
PROC: 5A09357 Assistance with Respiratory Ventilation, Less than 24 Consecutive Hours, Continuous Positive Airway Pressure (ICD-10-PCS; 2020-09-18)
PROC: XW033E5 Introduction of Remdesivir Anti-infective into Peripheral Vein, Percutaneous Approach, New Technology Group 5 (ICD-10-PCS; 2020-09-18)
PROC: 5A0935A Assistance with Respiratory Ventilation, Less than 24 Consecutive Hours, High Flow/Velocity Cannula (ICD-10-PCS; 2020-09-19)
PROC: 5A09357 Assistance with Respiratory Ventilation, Less than 24 Consecutive Hours, Continuous Positive Airway Pressure (ICD-10-PCS; 2020-09-19)
PROC: 5A09357 Assistance with Respiratory Ventilation, Less than 24 Consecutive Hours, Continuous Positive Airway Pressure (ICD-10-PCS; 2020-09-20)
PROC: 5A0935A Assistance with Respiratory Ventilation, Less than 24 Consecutive Hours, High Flow/Velocity Cannula (ICD-10-PCS; 2020-09-20)
PROC: 5A0935A Assistance with Respiratory Ventilation, Less than 24 Consecutive Hours, High Flow/Velocity Cannula (ICD-10-PCS; 2020-09-21)
PROC: 5A09357 Assistance with Respiratory Ventilation, Less than 24 Consecutive Hours, Continuous Positive Airway Pressure (ICD-10-PCS; 2020-09-21)
PROC: 5A0935A Assistance with Respiratory Ventilation, Less than 24 Consecutive Hours, High Flow/Velocity Cannula (ICD-10-PCS; 2020-09-22)
PROC: 5A09357 Assistance with Respiratory Ventilation, Less than 24 Consecutive Hours, Continuous Positive Airway Pressure (ICD-10-PCS; 2020-09-22)
PROC: 5A09357 Assistance with Respiratory Ventilation, Less than 24 Consecutive Hours, Continuous Positive Airway Pressure (ICD-10-PCS; 2020-09-23)
PROC: 5A0935A Assistance with Respiratory Ventilation, Less than 24 Consecutive Hours, High Flow/Velocity Cannula (ICD-10-PCS; 2020-09-23)
PROC: 5A0935A Assistance with Respiratory Ventilation, Less than 24 Consecutive Hours, High Flow/Velocity Cannula (ICD-10-PCS; 2020-09-24)
PROC: 5A09357 Assistance with Respiratory Ventilation, Less than 24 Consecutive Hours, Continuous Positive Airway Pressure (ICD-10-PCS; 2020-09-25)
PROC: 5A0935A Assistance with Respiratory Ventilation, Less than 24 Consecutive Hours, High Flow/Velocity Cannula (ICD-10-PCS; 2020-09-25)
PROC: 5A09357 Assistance with Respiratory Ventilation, Less than 24 Consecutive Hours, Continuous Positive Airway Pressure (ICD-10-PCS; 2020-09-26)
PROC: 5A0935A Assistance with Respiratory Ventilation, Less than 24 Consecutive Hours, High Flow/Velocity Cannula (ICD-10-PCS; 2020-09-27)
PROC: 5A09357 Assistance with Respiratory Ventilation, Less than 24 Consecutive Hours, Continuous Positive Airway Pressure (ICD-10-PCS; 2020-09-28)
PROC: 5A0935A Assistance with Respiratory Ventilation, Less than 24 Consecutive Hours, High Flow/Velocity Cannula (ICD-10-PCS; 2020-09-28)
PROC: 5A09357 Assistance with Respiratory Ventilation, Less than 24 Consecutive Hours, Continuous Positive Airway Pressure (ICD-10-PCS; 2020-09-29)
DX: U07.1 COVID-19 (principal); J12.82 Pneumonia due to coronavirus disease 2019; J96.21 Acute and chronic respiratory failure with hypoxia; I42.9 Cardiomyopathy, unspecified; I50.32 Chronic diastolic (congestive) heart failure; Z68.45 Body mass index [BMI] 70 or greater, adult; I11.0 Hypertensive heart disease with heart failure; J44.9 Chronic obstructive pulmonary disease, unspecified; E66.01 Morbid (severe) obesity due to excess calories; J45.909 Unspecified asthma, uncomplicated; I27.20 Pulmonary hypertension, unspecified; E87.6 Hypokalemia; E88.81 Metabolic syndrome and other insulin resistance; Z87.891 Personal history of nicotine dependence; Z88.8 Allergy status to other drugs, medicaments and biological substances
CPT/HCPCS: 10879

== ENCOUNTER → 2020-10-30 | Outpatient (CLI) | payer OTHER ==
[~2020-10-30] MED LIST changes: +ACEROLA C500 MG PO; +IPRAT-ALBUT 0.5-3 ML INH; +PREDNISONE 10 M10 M1 PO; +VITAMIN B-1100 M2 PO; +VITAMIN D325 MC1 PO
== END ==
LOC: RAD 14:16
PROVIDERS: ATTEND Internal Medicine Pulmonary Disease
DX: J18.9 Pneumonia, unspecified organism (principal); R06.00 Dyspnea, unspecified